=== PATIENT | female | born 1940 | race Two or more races ===

== ENCOUNTER 2018-07-29 05:48 | Day surgery (SDC) | payer OTHER ==
[~2018-07-29 05:48] MED LIST: CLONAZEPAM1 MG PO; DOCUSATE SODIU100 MG PO; GABAPENTIN800 MG PO; HUMULIN R500 UNIT/2; HYZAAR 50-12.51 EACH PO; LANTUS SOL100 UNIT/1; METOPROLOL SUCC25 MG PO; PERCOCET 5-3251 EACH PO; PROZAC20 MG PO; SYNTHROID175 MCG PO
== END 2018-07-29 10:45 | disposition home or self-care (01) ==
LOC: CIR.AMB 05:48
DX: M75.122 Complete rotator cuff tear or rupture of left shoulder, not specified as traumatic (principal); M25.311 Other instability, right shoulder